=== PATIENT | female | born 2000 | race Caucasian/White ===

== ENCOUNTER 2020-09-08 15:12 | Emergency (ER) | payer SELFPAY ==
[~2020-09-08] VITALS: Ht 180.3 cm; Wt 65.8 kg
--- NOTE | 2020-09-08 15:58 | NUR ---
PT COOPERATIVE W/ ASSESSMENT, SLOW TO RESPOND. PT REPORTED TAKING METH/HEROIN THIS MORNING. PROVIDED SNACKS AND DRINK. HAD PT LAY ON GUJENN, PLACED MONITORS ON HER. PT IS NOW SLEEPING. MELISSA CANDELARIA. CALL LIGHT W/IN REACH.
--- NOTE | 2020-09-08 16:41 | NUR ---
PT STILL SLEEPING IN RNEY, NADN REG/UNLABORED RESPIRATIONS. CALL LIGHT W/IN REACH.
--- NOTE | 2020-09-08 17:38 | NUR ---
SLEEPING, REG/UNLABORED RESPIRATIONS. NADN, VSS CALL LIGHT W/IN REACH.
--- NOTE | 2020-09-08 18:10 | NUR ---
PT SLEEPING, VSS, NADN. CALL LIGHT AND BELONGINGS W/IN REACH. Addendum: 09/08/20 at 1811 by SARAH ATTEMPTED TO ROUSE PT BY CALLING HER NAME, SHE APPEARS TO BE IN DEEP SLEEP.
--- NOTE | 2020-09-08 18:54 | NUR ---
Report from Nancy MENARD
--- NOTE | 2020-09-08 18:55 | NUR ---
SBAR REPORT GIVEN TO PAT
--- NOTE | 2020-09-08 20:24 | NUR ---
Pt arrosable by name, unwilling to answer questions at this time and speaking in one word responses. WCTM
--- NOTE | 2020-09-08 21:46 | NUR ---
Pt still unable to answer questions, falls asleep when arroused, VSS. WCTM
[2020-09-08 21:50] VITALS: BP 108/56
--- NOTE | 2020-09-08 21:50 | NUR ---
Pt now in position crying and mumbling, this RN asked what is wrong and pt stated "it doesnt matter anyways". This RN asked if she felt safe going home and the pt responded with a verbal "yes". Will road test to ensure safe dc
--- NOTE | 2020-09-08 22:10 | NUR ---
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
== END 2020-09-08 22:12 | disposition home or self-care (01) ==
LOC: ED 16:00
DX: F15.20 Other stimulant dependence, uncomplicated (principal); F11.20 Opioid dependence, uncomplicated; Z72.9 Problem related to lifestyle, unspecified; R00.0 Tachycardia, unspecified
CPT/HCPCS: 99285

== ENCOUNTER 2020-11-23 02:22 | Emergency (ER) | payer SELFPAY ==
[~2020-11-23] VITALS: Ht 177.8 cm; Wt 61.3 kg
[2020-11-23 02:25] VITALS: BP 123/84
== END 2020-11-23 03:07 | disposition home or self-care (01) ==
LOC: ED 02:30
DX: F15.10 Other stimulant abuse, uncomplicated (principal); Z48.01 Encounter for change or removal of surgical wound dressing; Z72.9 Problem related to lifestyle, unspecified
CPT/HCPCS: 99281